=== PATIENT | female | born 1990 | race Caucasian/White ===

== ENCOUNTER 2023-02-27 17:30 | Outpatient (CLI) | payer BC | END 2023-02-27 17:31 | disposition home or self-care (01) | LOC: SLEEPLAB 17:30 | PROVIDERS: ATTEND Family Medicine | DX: G47.33 Obstructive sleep apnea (adult) (pediatric) (principal); R06.83 Snoring; F41.9 Anxiety disorder, unspecified | CPT/HCPCS: 95800 ==

== ENCOUNTER 2023-10-02 08:11 | Day surgery (SDC) | payer BC ==
[2023-09-30 16:27] VITALS: BMI 21.9
[2023-10-02] MEDS ORDERED: Oxymetazoline HCl 0.05% (30 ML BOT) ONE (10:05)
[2023-10-02] MEDS ORDERED: PROPOFOL 20 ML ONE (10:54)
[2023-10-02] MEDS ORDERED: EPINEPHrine 1 MG/ML VIAL ONE (11:32)
[2023-10-02] MEDS ORDERED: Lidocaine 1% (PF) 30 ML VIAL ONE (11:33)
[2023-10-02] MEDS ORDERED: Bacitracin Zinc Ointment 30 gm TUBE ONE (11:33)
[2023-10-02] MEDS ORDERED: fentaNYL 50 mcg/mL 1 mL Vial ONE (12:00)
[2023-10-02] MEDS ORDERED: Lidocaine 1% PF 5 ML VIAL ONE (12:01)
[2023-10-02] MEDS ORDERED: methylPREDNISolone Acetate 40 mg/ml Vial ONE (12:15)
[2023-10-02] MEDS ORDERED: methylPREDNISolone Sod Succ 40 MG VIAL ONE (12:15)
[2023-10-02] MEDS ORDERED: ePHEDrine Sulfate 50 MG/10 ML VIAL ONE (12:19)
[2023-10-02] MEDS ORDERED: Ondansetron PF 4 MG/2 ML Vial ONE ×2 (12:36→14:03)
[2023-10-02] MEDS ORDERED: Dexamethasone 4 mg/ml Vial ONE (12:46)
== END 2023-10-02 15:15 | disposition home or self-care (01) ==
LOC: SDC 08:11
PROVIDERS: ATTEND Otolaryngology Plastic Surgery within the Head & Neck
PROC: 09TV8ZZ Resection of Left Ethmoid Sinus, Via Natural or Artificial Opening Endoscopic (ICD-10-PCS; principal; 2023-10-02)
PROC: 09TL8ZZ Resection of Nasal Turbinate, Via Natural or Artificial Opening Endoscopic (ICD-10-PCS; principal; 2023-10-02)
PROC: 09TS8ZZ Resection of Right Frontal Sinus, Via Natural or Artificial Opening Endoscopic (ICD-10-PCS; principal; 2023-10-02)
PROC: 09TU8ZZ Resection of Right Ethmoid Sinus, Via Natural or Artificial Opening Endoscopic (ICD-10-PCS; principal; 2023-10-02)
PROC: 09TQ8ZZ Resection of Right Maxillary Sinus, Via Natural or Artificial Opening Endoscopic (ICD-10-PCS; principal; 2023-10-02)
PROC: 09TT8ZZ Resection of Left Frontal Sinus, Via Natural or Artificial Opening Endoscopic (ICD-10-PCS; principal; 2023-10-02)
PROC: 09BM8ZZ Excision of Nasal Septum, Via Natural or Artificial Opening Endoscopic (ICD-10-PCS; principal; 2023-10-02)
PROC: 09TR8ZZ Resection of Left Maxillary Sinus, Via Natural or Artificial Opening Endoscopic (ICD-10-PCS; principal; 2023-10-02)
DX: J34.2 Deviated nasal septum (principal); J32.8 Other chronic sinusitis; J34.3 Hypertrophy of nasal turbinates; J01.91 Acute recurrent sinusitis, unspecified; Z88.5 Allergy status to narcotic agent; Z88.8 Allergy status to other drugs, medicaments and biological substances; Z88.1 Allergy status to other antibiotic agents
CPT/HCPCS: J0171; J1030; J1100; J2001; J2405; J2704; J2920; J3010